=== PATIENT | male | born 1975 | race African-American/Black ===

== ENCOUNTER 2016-10-19 02:52 | Emergency (ER) | payer SELFPAY ==
[~2016-10-19] VITALS: Ht 157.5 cm; Wt 57.0 kg
[~2016-10-19 02:52] MED LIST: BUTACAP2 PO
[2016-10-19 02:54] VITALS: BP 140/86; PULSE 100; RESP 16; TEMP 98.2; O2SAT 96
[2016-10-19] MEDS ORDERED: SODIUM CHLOR 0.9% 1000 ML INJ 1,000 ML IV SCH (03:08)
--- NOTE | 2016-10-19 03:12 | PD ---
HPI Chief Complaint: GI Complaint Time Seen by Provider: 03:01 Travel History International Travel<30 days: No Contact w/Intl Traveler<30days: No Traveled to known affect area: No History of Present Illness HPI The patient is a 40-year-old [place] male who presents emergency department for body aches, nausea, and vomiting. The patient states his symptoms started earlier today with pain located over the right hip and right foot. He then developed pain located over the right scapula. The patient didn' t develop nausea and vomiting with one episode of epigastric abdominal pain which is currently resolved. Patient denies any diffuse body aches and denies any fever, chills, or sweats. He denies any congestion or cough. He denies any other influenza-type symptoms. The patient states he has no chronic medical problems, no previous surgeries, denies taking any medications on a daily basis, denies any allergies. He denies any illicit drug use or alcohol use. PFSH Past Medical History Medical History: Denies Significant Hx Diminished Hearing: No Immunizations Current: Yes Past Surgical History Surgical History: No Previous Surgery Social History Alcohol Use: No Tobacco Use: No Substance Use: No Allergies-Medications (Allergen,Severity, Reaction): Coded Allergies: No Known Allergies (Verified , 10/19/16) Reported Meds & Prescriptions Reported Meds & Active Scripts Active Butalbital/Acetaminophen/ (Acetaminophen/Butalbital/Caffeine) Cap 1 Cap PO Q6H PRN Review of Systems Except as stated in HPI: all other systems reviewed are Neg General / Constitutional: No: Fever HENT: No: Headaches, Congestion, Neck Pain Cardiovascular: No: Chest Pain or Discomfort Respiratory: No: Shortness of Breath Gastrointestinal: Positive: Nausea, Vomiting, Abdominal Pain (epigastric abdominal pain is currently resolved), No: Diarrhea Genitourinary: No: Dysuria, Decreased Urinary Output Musculoskeletal: Positive: Myalgias, Arthralgias Skin: No Rash Neurologic: No: Dizziness Physical Exam Narrative GENERAL: Awake, alert, pleasant 40-year-old male who appears his stated age and is in no acute respiratory distress. SKIN: Warm and dry. HEAD: Atraumatic. Normocephalic. EYES: Pupils equal and round. No scleral icterus. No injection or drainage. ENT: No nasal bleeding or discharge. Mucous membranes pink and moist. NECK: Trachea midline. No JVD. CARDIOVASCULAR: Regular rate and rhythm. No murmur appreciated. RESPIRATORY: No accessory muscle use. Clear to auscultation. Breath sounds equal bilaterally. GASTROINTESTINAL: Abdomen soft, non-tender, nondistended. No rebound tenderness. No guarding or rigidity. Negative Garcia's. Negative McBurney's. MUSCULOSKELETAL: No obvious deformities. No clubbing. No cyanosis. No edema. Full range of motion of the upper and lower extremities. Positive distal pulses. NEUROLOGICAL: Awake and alert. No obvious cranial nerve deficits. Motor grossly within normal limits. Normal speech. PSYCHIATRIC: Appropriate mood and affect; insight and judgment normal. Data Data Last Documented VS Vital Signs Date Time Temp Pulse Resp B/P Pulse Ox O2 Delivery O2 Flow Rate FiO2 10/19/16 04:13 18 10/19/16 03:24 97 Room Air 10/19/16 02:54 98.2 100 140/86 Orders Complete Blood Count With Diff (10/19/16 03:08) Comprehensive Metabolic Panel (10/19/16 03:08) Lipase (10/19/16 03:08) Iv Access Insert/Monitor (10/19/16 03:08) Ecg Monitoring (10/19/16 03:08) Oximetry (10/19/16 03:08) Morphine Inj (Morphine Inj) (10/19/16 03:15) Ondansetron Inj (Zofran Inj) (10/19/16 03:15) Sodium Chlor 0.9% 1000 Ml Inj (Ns 1000 M (10/19/16 03:08) Sodium Chloride 0.9% Flush (Ns Flush) (10/19/16 03:15) Ketorolac Inj (Toradol Inj) (10/19/16 03:15) Creatine Kinase (Cpk) (10/19/16 03:08) Labs Laboratory Tests Test 10/19/16 03:20 White Blood Count 5.7 TH/MM3 Red Blood Count 5.01 MIL/MM3 Hemoglobin 14.7 GM/DL Hematocrit 42.0 % Mean Corpuscular Volume 83.9 FL Mean Corpuscular Hemoglobin 29.3 PG Mean Corpuscular Hemoglobin 34.9 % Concent Red Cell Distribution Width 13.8 % Platelet Count 195 TH/MM3 Mean Platelet Volume 9.2 FL Neutrophils (%) (Auto) 61.1 % Lymphocytes (%) (Auto) 30.6 % Monocytes (%) (Auto) 6.2 % Eosinophils (%) (Auto) 1.2 % Basophils (%) (Auto) 0.9 % Neutrophils # (Auto) 3.5 TH/MM3 Lymphocytes # (Auto) 1.8 TH/MM3 Monocytes # (Auto) 0.4 TH/MM3 Eosinophils # (Auto) 0.1 TH/MM3 Basophils # (Auto) 0.0 TH/MM3 CBC Comment DIFF FINAL Differential Comment Sodium Level 142 MEQ/L Potassium Level 3.3 MEQ/L Chloride Level 106 MEQ/L Carbon Dioxide Level 25.9 MEQ/L Anion Gap 10 MEQ/L Blood Urea Nitrogen 12 MG/DL Creatinine 0.86 MG/DL Estimat Glomerular Filtration 119 ML/MIN Rate Random Glucose 104 MG/DL Calcium Level 8.9 MG/DL Total Bilirubin 0.3 MG/DL Aspartate Amino Transf 18 U/L (AST/SGOT) Alanine Aminotransferase 20 U/L (ALT/SGPT) Alkaline Phosphatase 65 U/L Total Creatine Kinase 299 U/L Total Protein 7.2 GM/DL Albumin 3.8 GM/DL Lipase 168 U/L [facility] Medical Decision Making Medical Screen Exam Complete: Yes Emergency Medical Condition: Yes Medical Record Reviewed: Yes Interpretation(s) Laboratory Tests Test 10/19/16 03:20 White Blood Count 5.7 TH/MM3 Red Blood Count 5.01 MIL/MM3 Hemoglobin 14.7 GM/DL Hematocrit 42.0 % Mean Corpuscular Volume 83.9 FL Mean Corpuscular Hemoglobin 29.3 PG Mean Corpuscular Hemoglobin 34.9 % Concent Red Cell Distribution Width 13.8 % Platelet Count 195 TH/MM3 Mean Platelet Volume 9.2 FL Neutrophils (%) (Auto) 61.1 % Lymphocytes (%) (Auto) 30.6 % Monocytes (%) (Auto) 6.2 % Eosinophils (%) (Auto) 1.2 % Basophils (%) (Auto) 0.9 % Neutrophils # (Auto) 3.5 TH/MM3 Lymphocytes # (Auto) 1.8 TH/MM3 Monocytes # (Auto) 0.4 TH/MM3 Eosinophils # (Auto) 0.1 TH/MM3 Basophils # (Auto) 0.0 TH/MM3 CBC Comment DIFF FINAL Differential Comment Sodium Level 142 MEQ/L Potassium Level 3.3 MEQ/L Chloride Level 106 MEQ/L Carbon Dioxide Level 25.9 MEQ/L Anion Gap 10 MEQ/L Blood Urea Nitrogen 12 MG/DL Creatinine 0.86 MG/DL Estimat Glomerular Filtration 119 ML/MIN Rate Random Glucose 104 MG/DL Calcium Level 8.9 MG/DL Total Bilirubin 0.3 MG/DL Aspartate Amino Transf 18 U/L (AST/SGOT) Alanine Aminotransferase 20 U/L (ALT/SGPT) Alkaline Phosphatase 65 U/L Total Creatine Kinase 299 U/L Total Protein 7.2 GM/DL Albumin 3.8 GM/DL Lipase 168 U/L Differential Diagnosis Differential diagnosis includes viral syndrome, tenosynovitis, autoimmune disorder, rheumatoid arthritis, osteoarthritis, acute renal failure, electrolyte abnormality. Narrative Course IV was established, labs are drawn and sent, and the patient was placed on cardiac telemetry monitoring and continuous pulse oximetry monitoring. The patient was administered Zofran, Toradol, morphine, and IV fluids. The patient' s potassium is mildly low at 3.3, therefore, was replaced orally. The patient' s CPK is normal, no evidence of rhabdomyolysis. Patient's white count is unremarkable. Lipase and LFTs are unremarkable. Patient is stable for outpatient follow-up. Diagnosis Primary Impression: Nausea & vomiting Qualified Code: R11.2 - Non-intractable vomiting with nausea, unspecified vomiting type Additional Impression: Arthralgia Qualified Code: M25.50 - Arthralgia, unspecified joint Patient Instructions: General Instructions Additional Instructions: Tylenol and or Motrin as needed for pain. Follow-up with her primary physician. Plenty of fluids to stay hydrated. Med/Other Pt SpecificInfo: No Change to Meds Disposition: 01 DISCHARGE HOME Condition: Stable Segun Hawkins MD Oct 19, 2016 03:12
[2016-10-19] MEDS ORDERED: KETOROLAC TROMETHAMINE 30 MG/ML (IVP) VIAL IVP ONE (03:15)
[2016-10-19] MEDS ORDERED: SODIUM CHLORIDE 0.9% FLUSH 5 ML FLUSH IVF PRN (03:15)
[2016-10-19] MEDS ORDERED: MORPHINE SULFATE 4 MG/ML INJ IV PUSH ONE (03:15)
[2016-10-19] MEDS ORDERED: ONDANSETRON HCL 4 MG/2 ML VIAL IVP ONE (03:15)
[2016-10-19 03:24] VITALS: O2SAT 97
[2016-10-19 03:33] LABS: AUTOMATED NEUTROPHIL # 3.5 TH/MM3 (1.8-7.7); BASOPHIL % 0.9 % (0.0-2.0); EOSINOPHIL # 0.1 TH/MM3 (0-0.4); EOSINOPHIL % 1.2 % (0.0-4.0); HEMO FLAGS DIFF FINAL; LYMPH % 30.6 % (9.0-44.0); LYMPHOCYTE # 1.8 TH/MM3 (1.0-4.8); MEAN CELL VOLUME 83.9 FL (80.0-100.0); MEAN CORPUSCULAR HEMOGLOBIN 29.3 PG (27.0-34.0); MEAN CORPUSCULAR HGB CONC 34.9 % (32.0-36.0); MONO % 6.2 % (0.0-8.0); NEUT % 61.1 % (16.0-70.0); PLATELET COUNT 195 TH/MM3 (150-450); RED BLOOD COUNT 5.01 MIL/MM3 (4.50-5.90); RED CELL DISTRIBUTION WIDTH 13.8 % (11.6-17.2); WHITE BLOOD COUNT 5.7 TH/MM3 (4.0-11.0)
[2016-10-19 04:01] LABS: ALT (GPT) 20 U/L (12-78); ANION GAP 10 MEQ/L (5-15); AST (GOT) 18 U/L (15-37); BICARBONATE 25.9 MEQ/L (21.0-32.0); BLOOD UREA NITROGEN 12 MG/DL (7-18); CHLORIDE 106 MEQ/L (98-107); GLOMERULAR FILTRATION RATE 119 ML/MIN (>89); POTASSIUM 3.3 MEQ/L (3.5-5.1); SODIUM (NA) 142 MEQ/L (136-145)
[2016-10-19 04:03] LABS: ALKALINE PHOSPHATASE 65 U/L (45-117); CREATINE KINASE 299 U/L (39-308); TOTAL BILIRUBIN ADULT 0.3 MG/DL (0.2-1.0)
[2016-10-19 04:13] VITALS: RESP 18
[2016-10-19] MEDS ORDERED: POTASSIUM CHLORIDE 25 MEQ EFFERVESCENT TAB PO ONE (05:00)
== END 2016-10-19 05:43 | disposition home or self-care (01) ==
LOC: NEPC 02:52
DX: R11.2 Nausea with vomiting, unspecified (principal); M25.50 Pain in unspecified joint; M79.671 Pain in right foot; M25.551 Pain in right hip
CPT/HCPCS: 80053; 82550; 83690; 85025; 96361; 96374; 96375; 99284; J1885; J2270; J2405; J7030

== ENCOUNTER 2017-07-26 21:15 | Emergency (ER) | payer SELFPAY ==
[~2017-07-26] VITALS: Ht 157.5 cm; Wt 57.0 kg
[2017-07-26 21:16] VITALS: BP 130/82; PULSE 82; RESP 16; TEMP 99.2; O2SAT 98
[2017-07-26] MEDS ORDERED: AMOXICILLIN 875 MG TAB PO ONE (22:15)
[2017-07-26] MEDS ORDERED: AMOX875T PO (22:15)
--- NOTE | 2017-07-26 22:16 | PD ---
HPI Chief Complaint: ENT Complaint Time Seen by Provider: 22:07 Travel History International Travel<30 days: No Contact w/Intl Traveler<30days: No Traveled to known affect area: No History of Present Illness HPI 41-year-old male presents to the emergency department for evaluation of right ear pain that started this afternoon. He states it radiates to the head. Patient rates his pain 8/10. Pain is achy, sharp. No Fevers or chills. Has no medical problems and takes no prescribed medications. Severity is mild. PFSH Past Medical History Diminished Hearing: No Immunizations Current: Yes Social History Alcohol Use: No Tobacco Use: No Substance Use: No Allergies-Medications (Allergen,Severity, Reaction): Coded Allergies: No Known Allergies (Verified Adverse Reaction, Unknown, 07/26/17) Reported Meds & Prescriptions Reported Meds & Active Scripts Active Butalbital/Acetaminophen/ (Acetaminophen/Butalbital/Caffeine) Cap 1 Cap PO Q6H PRN Review of Systems Except as stated in HPI: all other systems reviewed are Neg Physical Exam Narrative GENERAL: Well-nourished, well-developed male patient, ambulatory. Afebrile. SKIN: Focused skin assessment warm/dry. HEAD: Normocephalic. Atraumatic. ENT: Mucosa pink and moist. No erythema or exudates. No uvular edema. No uvular , palatal, or tonsillar deviation. Airway patent. Nasal turbinates appear normal without nasal blood, purulent drainage or septal hematoma. Right tympanic membrane is erythematous and bulging. Left tympanic membrane is clear without erythema or perforation. No mastoid tenderness. EYES: No scleral icterus. No injection or drainage. NECK: Supple, trachea midline. No JVD or lymphadenopathy. CARDIOVASCULAR: Regular rate and rhythm without murmurs, gallops, or rubs. RESPIRATORY: Breath sounds equal bilaterally. No accessory muscle use. Lungs sounds are clear to auscultation. GASTROINTESTINAL: Abdomen soft, non-tender, nondistended. MUSCULOSKELETAL: No cyanosis, or edema. BACK: Nontender without obvious deformity. No CVA tenderness. Data Data Last Documented VS Vital Signs Date Time Temp Pulse Resp B/P (MAP) Pulse Ox O2 Delivery O2 Flow Rate FiO2 07/26/17 21:16 99.2 82 16 130/82 (98) 98 Room Air Orders Orders Amoxicillin (Trimox) (07/26/17 22:15) [facility] Medical Decision Making Medical Screen Exam Complete: Yes Emergency Medical Condition: Yes Medical Record Reviewed: Yes Differential Diagnosis Otitis media versus otitis externa versus eustachian tube dysfunction versus mastoiditis Narrative Course 41-year-old male presents to the emergency department for evaluation of right ear pain that started this afternoon. Physical exam is consistent with otitis media. Patient will be discharged with a prescription for amoxicillin. He is given his first dose here. The patient was discharged in stable condition with instructions, including return instructions and follow up instructions. Diagnosis Primary Impression: Otitis media Qualified Codes: H66.90 - Otitis media, unspecified, unspecified ear Referrals: Primary Care Physician call for appointment Patient Instructions: Ear Infection (ED), General Instructions Additional Instructions: Take antibiotic as directed until gone. This is free at [facility]. [id number] Tylenol or ibuprofen for pain. Follow-up with your primary care physician. Return to the emergency department for any acute worsening of symptoms. Med/Other Pt SpecificInfo: Prescription(s) given Scripts Amoxicillin (Amoxicillin) 875 Mg Tab 875 MG PO BID for Infection for 10 Days, #20 TAB 0 Refills Prov: Harleen Petit 07/26/17 Disposition: 01 DISCHARGE HOME Condition: Stable Harleen Petit Jul 26, 2017 22:16
== END 2017-07-26 23:38 | disposition home or self-care (01) ==
LOC: NEPC 21:15
DX: H66.91 Otitis media, unspecified, right ear (principal)
CPT/HCPCS: 99283